=== PATIENT | female | born 1970 | race Caucasian/White ===

== ENCOUNTER → 2020-09-23 | Outpatient (CLI) | payer OTHER ==
[~2020-09-23] MED LIST: AMLODIPINE BESYL5 MG PO; ATENOLOL25 MG PO; CLEOCIN HCL300 MG PO; ELIQUIS 5 MG TAB5 MG PO; GLUCOPHAGE 500500 MG PO; HUMALOG 10100 UNITS/ SC; LANTUS INS100 UTS/M1 SC; MICONAZOLE NITR45 GM PV; NEURONTIN800 MG PO; NYSTOP60 GM TOP; PAROXETINE HCL20 MG PO; PAXIL CR25 MG PO; PROTONIX 40 MG40 M1 PO; SILVADENE20 GM TOP; TRULICITY1.5 MG/0.5 SQ
== END ==
LOC: WCC 12:38
PROC: 0JBP0ZZ Excision of Left Lower Leg Subcutaneous Tissue and Fascia, Open Approach (ICD-10-PCS; principal; 2020-09-23)
PROC: 0JBN0ZZ Excision of Right Lower Leg Subcutaneous Tissue and Fascia, Open Approach (ICD-10-PCS; 2020-09-23)
DX: L97.812 Non-pressure chronic ulcer of other part of right lower leg with fat layer exposed (principal); L97.822 Non-pressure chronic ulcer of other part of left lower leg with fat layer exposed; Z79.01 Long term (current) use of anticoagulants; Z79.4 Long term (current) use of insulin; Z79.899 Other long term (current) drug therapy; E08.59 Diabetes mellitus due to underlying condition with other circulatory complications; Z89.512 Acquired absence of left leg below knee; Z89.511 Acquired absence of right leg below knee; E66.09 Other obesity due to excess calories; I82.403 Acute embolism and thrombosis of unspecified deep veins of lower extremity, bilateral; I73.9 Peripheral vascular disease, unspecified

== ENCOUNTER → 2020-10-07 | Outpatient (CLI) | payer OTHER | LOC: WCC 13:00 | PROC: 0JBN0ZZ Excision of Right Lower Leg Subcutaneous Tissue and Fascia, Open Approach (ICD-10-PCS; principal; 2020-10-07) | DX: L97.812 Non-pressure chronic ulcer of other part of right lower leg with fat layer exposed (principal); E08.59 Diabetes mellitus due to underlying condition with other circulatory complications; E66.09 Other obesity due to excess calories; I82.403 Acute embolism and thrombosis of unspecified deep veins of lower extremity, bilateral; I73.9 Peripheral vascular disease, unspecified; Z89.512 Acquired absence of left leg below knee; Z89.511 Acquired absence of right leg below knee ==

== ENCOUNTER → 2020-10-14 | Outpatient (CLI) | payer OTHER | LOC: WCC 12:57 | PROC: 0JBN0ZZ Excision of Right Lower Leg Subcutaneous Tissue and Fascia, Open Approach (ICD-10-PCS; principal; 2020-10-14) | DX: L97.812 Non-pressure chronic ulcer of other part of right lower leg with fat layer exposed (principal); E08.59 Diabetes mellitus due to underlying condition with other circulatory complications; E66.09 Other obesity due to excess calories; I82.403 Acute embolism and thrombosis of unspecified deep veins of lower extremity, bilateral; I73.9 Peripheral vascular disease, unspecified; Z89.512 Acquired absence of left leg below knee; Z89.511 Acquired absence of right leg below knee; Z79.4 Long term (current) use of insulin; Z79.899 Other long term (current) drug therapy ==

== ENCOUNTER → 2020-10-21 | Outpatient (CLI) | payer OTHER | LOC: WCC 13:15 | PROC: 0JBP0ZZ Excision of Left Lower Leg Subcutaneous Tissue and Fascia, Open Approach (ICD-10-PCS; principal; 2020-10-21) | PROC: 0JBN0ZZ Excision of Right Lower Leg Subcutaneous Tissue and Fascia, Open Approach (ICD-10-PCS; 2020-10-21) | DX: T87.81 Dehiscence of amputation stump (principal); L97.812 Non-pressure chronic ulcer of other part of right lower leg with fat layer exposed; Z89.512 Acquired absence of left leg below knee; Z89.511 Acquired absence of right leg below knee; E66.01 Morbid (severe) obesity due to excess calories; I96 Gangrene, not elsewhere classified; I82.403 Acute embolism and thrombosis of unspecified deep veins of lower extremity, bilateral | CPT/HCPCS: 87070; 87077; 87186; 87205 ==

== ENCOUNTER → 2020-10-28 | Outpatient (CLI) | payer OTHER | LOC: WCC 12:48 | PROC: 0JBP0ZZ Excision of Left Lower Leg Subcutaneous Tissue and Fascia, Open Approach (ICD-10-PCS; principal; 2020-10-28) | DX: T81.30XA Disruption of wound, unspecified, initial encounter (principal); S81.801A Unspecified open wound, right lower leg, initial encounter; X58.XXXA Exposure to other specified factors, initial encounter; Z79.4 Long term (current) use of insulin; Z79.899 Other long term (current) drug therapy ==

== ENCOUNTER → 2020-11-04 | Outpatient (CLI) | payer OTHER | LOC: WCC 13:00 | PROC: 0KBS0ZZ Excision of Right Lower Leg Muscle, Open Approach (ICD-10-PCS; principal; 2020-11-04) | PROC: 0JBJ0ZZ Excision of Right Hand Subcutaneous Tissue and Fascia, Open Approach (ICD-10-PCS; principal; 2020-11-04) | PROC: 0KBT0ZZ Excision of Left Lower Leg Muscle, Open Approach (ICD-10-PCS; principal; 2020-11-04) | DX: S61.202A Unspecified open wound of right middle finger without damage to nail, initial encounter (principal); T81.31XA Disruption of external operation (surgical) wound, not elsewhere classified, initial encounter; S61.206D Unspecified open wound of right little finger without damage to nail, subsequent encounter; E11.622 Type 2 diabetes mellitus with other skin ulcer; L97.812 Non-pressure chronic ulcer of other part of right lower leg with fat layer exposed; E11.52 Type 2 diabetes mellitus with diabetic peripheral angiopathy with gangrene; I96 Gangrene, not elsewhere classified; E66.09 Other obesity due to excess calories; I82.403 Acute embolism and thrombosis of unspecified deep veins of lower extremity, bilateral; E11.40 Type 2 diabetes mellitus with diabetic neuropathy, unspecified; M19.90 Unspecified osteoarthritis, unspecified site; Z68.29 Body mass index [BMI] 29.0-29.9, adult; Z89.512 Acquired absence of left leg below knee; Z89.511 Acquired absence of right leg below knee; Z79.01 Long term (current) use of anticoagulants; Z79.4 Long term (current) use of insulin; Z79.899 Other long term (current) drug therapy; X58.XXXA Exposure to other specified factors, initial encounter; Y83.5 Amputation of limb(s) as the cause of abnormal reaction of the patient, or of later complication, without mention of misadventure at the time of the procedure | CPT/HCPCS: Q4133 ==

== ENCOUNTER → 2020-11-11 | Outpatient (CLI) | payer OTHER | LOC: WCC 12:59 | DX: T81.31XA Disruption of external operation (surgical) wound, not elsewhere classified, initial encounter (principal); E11.51 Type 2 diabetes mellitus with diabetic peripheral angiopathy without gangrene; M19.90 Unspecified osteoarthritis, unspecified site; E11.40 Type 2 diabetes mellitus with diabetic neuropathy, unspecified; Z89.431 Acquired absence of right foot | CPT/HCPCS: 97597; Q4133 ==

== ENCOUNTER → 2020-11-18 | Outpatient (CLI) | payer OTHER | LOC: WCC 13:00 | PROC: 0HRKXK3 Replacement of Right Lower Leg Skin with Nonautologous Tissue Substitute, Full Thickness, External Approach (ICD-10-PCS; principal; 2020-11-18) | PROC: 0KBT0ZZ Excision of Left Lower Leg Muscle, Open Approach (ICD-10-PCS; principal; 2020-11-18) | DX: T87.81 Dehiscence of amputation stump (principal); T87.54 Necrosis of amputation stump, left lower extremity; T87.53 Necrosis of amputation stump, right lower extremity; E11.52 Type 2 diabetes mellitus with diabetic peripheral angiopathy with gangrene; I96 Gangrene, not elsewhere classified; E11.622 Type 2 diabetes mellitus with other skin ulcer; L97.812 Non-pressure chronic ulcer of other part of right lower leg with fat layer exposed; E11.59 Type 2 diabetes mellitus with other circulatory complications; E11.40 Type 2 diabetes mellitus with diabetic neuropathy, unspecified; M19.90 Unspecified osteoarthritis, unspecified site; I82.403 Acute embolism and thrombosis of unspecified deep veins of lower extremity, bilateral; E66.09 Other obesity due to excess calories; Z68.29 Body mass index [BMI] 29.0-29.9, adult; Z89.512 Acquired absence of left leg below knee; Z89.511 Acquired absence of right leg below knee; Z79.01 Long term (current) use of anticoagulants; Z79.4 Long term (current) use of insulin; Z79.2 Long term (current) use of antibiotics; Z79.899 Other long term (current) drug therapy; Y83.5 Amputation of limb(s) as the cause of abnormal reaction of the patient, or of later complication, without mention of misadventure at the time of the procedure | CPT/HCPCS: Q4133 ==

== ENCOUNTER → 2020-11-25 | Outpatient (CLI) | payer OTHER | LOC: WCC 13:00 | DX: L97.812 Non-pressure chronic ulcer of other part of right lower leg with fat layer exposed (principal); E08.59 Diabetes mellitus due to underlying condition with other circulatory complications; I82.403 Acute embolism and thrombosis of unspecified deep veins of lower extremity, bilateral; I96 Gangrene, not elsewhere classified; Z89.512 Acquired absence of left leg below knee; Z89.511 Acquired absence of right leg below knee ==

== ENCOUNTER → 2020-12-09 | Outpatient (CLI) | payer OTHER | LOC: WCC 12:58 | DX: I82.403 Acute embolism and thrombosis of unspecified deep veins of lower extremity, bilateral (principal); I73.9 Peripheral vascular disease, unspecified; E66.09 Other obesity due to excess calories; E08.59 Diabetes mellitus due to underlying condition with other circulatory complications; Z89.512 Acquired absence of left leg below knee; Z89.511 Acquired absence of right leg below knee ==

== ENCOUNTER → 2020-12-23 | Outpatient (CLI) | payer OTHER | LOC: WCC 13:00 | DX: I82.403 Acute embolism and thrombosis of unspecified deep veins of lower extremity, bilateral (principal); E08.59 Diabetes mellitus due to underlying condition with other circulatory complications; E66.09 Other obesity due to excess calories; I73.9 Peripheral vascular disease, unspecified; Z89.512 Acquired absence of left leg below knee; Z89.511 Acquired absence of right leg below knee; Z68.29 Body mass index [BMI] 29.0-29.9, adult | CPT/HCPCS: 97597 ==

== ENCOUNTER → 2021-02-26 | Outpatient (CLI) | payer OTHER | LOC: EXRD 02-19 11:00 | DX: I82.409 Acute embolism and thrombosis of unspecified deep veins of unspecified lower extremity (principal); I72.4 Aneurysm of artery of lower extremity | CPT/HCPCS: 93970 ==

== ENCOUNTER 2022-04-20 10:08 | Emergency (ER) | payer OTHER ==
[2022-04-20] MEDS ORDERED: TORADOL 10 MG T10 MG PO (12:51)
== END 2022-04-20 13:07 | disposition home or self-care (01) ==
LOC: ER1 10:08
DX: S82.145A Nondisplaced bicondylar fracture of left tibia, initial encounter for closed fracture (principal); Z96.653 Presence of artificial knee joint, bilateral; W19.XXXA Unspecified fall, initial encounter; Y92.009 Unspecified place in unspecified non-institutional (private) residence as the place of occurrence of the external cause
CPT/HCPCS: 73562; 96372; 99283; J1885